=== PATIENT | male | born 1960 | race Caucasian/White ===

== ENCOUNTER 2023-08-02 11:14 | Inpatient (IN) | payer MEDICAID, SELFPAY ==
[2023-08-02] VITALS (8 sets, daily range): BP systolic 111–182; BP diastolic 65–132; PULSE 64–92; RESP 16–18; TEMP 36.5–37; O2SAT 95–98; BMI 26.6
--- NOTE | 2023-08-02 11:37 | ED.C_ITS ---
HPI - Psych General: Chief Complaint: Psychiatric Symptoms Stated Complaint: MHE Time Seen by Provider: 08/02/23 11:26 Source: patient Mode of arrival: ambulatory Limitations: no limitations History of Present Illness: 63-year-old male who states he has been having increasing depression he states that its been severe lately. He denies suicidal or homicidal ideations he is not on any meds. States that he is so depressed that he feels like he needs inpatient admission to get some help. Denies any worsening improving factors Associated symptoms: Reports depression; Deny suicidal ideation Review of Systems Const: Denies: fever(s), chills, body aches or change in appetite Eyes: Denies: blurry vision or eye discomfort ENMT: Denies: throat pain or dental pain Card: Denies: chest pain Resp: Denies: dyspnea GI: Denies: abdominal pain, nausea, vomiting or diarrhea : Denies: dysuria Musc: Denies: neck pain or back pain Skin/Breast: Denies: rash Neuro: Denies: headache(s) Psych: Reports: depression; Denies: suicidal ideation Physical Exam Const: COMMON NORMALS: no acute distress, patient oriented x3 and healthy appearing HENMT: COMMON NORMALS: normocephalic and atraumatic HEAD & SCALP: normocephalic and atraumatic Eye: COMMON NORMALS: Equal, round and reactive pupils present and EOMs intact bilaterally PUPIL: Yes Equal, round and reactive pupils present Neck/C-Spine: COMMON NORMALS: full ROM and supple Chest: COMMONS NORMALS: normal inspection of the chest and normal palpation of entire chest wall Resp: COMMON NORMALS: normal respiratory effort, No retractions, No use of accessory muscles and clear to auscultation bilaterally AUSCULTATION: clear to auscultation bilaterally Cardio: COMMON NORMALS: regular rate, regular rhythm and No murmurs present (Cardio) RATE: regular rate RHYTHM: regular rhythm GI: COMMON NORMALS: Normal to inspection, nondistended, normoactive bowel sounds present, Soft to palpation, non-tender and no masses PALPATION: Yes Soft to palpation Extremity: COMMON NORMALS: normal to inspection and full ROM Neuro: COMMON NORMALS: patient oriented x3, moves all extremities and no focal motor deficits Psych: COMMON NORMALS: mental status grossly normal, Normal thought process present and cooperative MOOD & AFFECT: Yes depressed mood THOUGHT PROCESS: Normal thought process present Skin: COMMON NORMALS: no rashes or lesions noted and no wounds GENERAL SKIN EXAM: no rashes or lesions noted Course Vital Signs: Vital signs: Vital Signs Temperature 97.7 F 08/02/23 11:31 Pulse Rate 86 08/02/23 12:23 Respiratory Rate 16 08/02/23 12:23 Blood Pressure 182/132 08/02/23 12:23 Pulse Oximetry 97 08/02/23 12:23 Oxygen Delivery Me thod Room Air 08/02/23 11:47 MDM - Psych Medical Decision Making patient presents with depression he is voluntarily want to be admitted blood work here is normal spoke to psychiatrist will admit at this time. Medical Records I reviewed the patient's medical records. Lab Data I reviewed the patient's lab results. 08/02/23 11:13 08/02/23 11:13 Laboratory Results WBC Cancelled 08/02/23 11:13 Corrected WBC Cancelled 08/02/23 11:13 RBC Cancelled 08/02/23 11:13 Hgb Cancelled 08/02/23 11:13 Hct Cancelled 08/02/23 11:13 MCV Cancelled 08/02/23 11:13 MCH Cancelled 08/02/23 11:13 MCHC Cancelled 08/02/23 11:13 RDW Cancelled 08/02/23 11:13 Plt Count Cancelled 08/02/23 11:13 MPV Cancelled 08/02/23 11:13 Gran % Cancelled 08/02/23 11:13 Neut % (Auto) Cancelled 08/02/23 11:13 Lymph % (Auto) Cancelled 08/02/23 11:13 [place] % (Auto) Cancelled 08/02/23 11:13 Eos % (Auto) Cancelled 08/02/23 11:13 Baso % (Auto) Cancelled 08/02/23 11:13 Neut # (Auto) Cancelled 08/02/23 11:13 Lymph # (Auto) Cancelled 08/02/23 11:13 [place] # (Auto) Cancelled 08/02/23 11:13 Eos # (Auto) Cancelled 08/02/23 11:13 Baso # (Auto) Cancelled 08/02/23 11:13 Absolute Gran (auto) Cancelled 08/02/23 11:13 Nucleated RBC % (auto) Cancelled 08/02/23 11:13 Nucleated RBCs # Cancelled 08/02/23 11:13 Sodium 138 mmol/L (136-145) 08/02/23 11:13 Potassium 4.2 mmol/L (3.5-5.1) 08/02/23 11:13 Chloride 102 mmol/L (98-107) 08/02/23 11:13 Carbon Dioxide 22 mmol/L (22-29) 08/02/23 11:13 Anion Gap 18.2 (5-19) 08/02/23 11:13 BUN 13 mg/dL (8-23) 08/02/23 11:13 Creatinine 0.8 mg/dL (0.7-1.2) 08/02/23 11:13 GFR Calculation 98.3 mL/min (90-130) 08/02/23 11:13 Glucose 133 mg/dL (65-115) H 08/02/23 11:13 Calculated Osmolality 288 mOsm/kg (285-295) 08/02/23 11:13 Calcium 9.9 mg/dL (8.5-10.5) 08/02/23 11:13 Total Bilirubin 0.7 mg/dL (0.15-1.2) 08/02/23 11:13 AST 17 U/L (0-40) 08/02/23 11:13 ALT 14 U/L (0-41) 08/02/23 11:13 Alkaline Phosphatase 68 U/L (40-130) 08/02/23 11:13 Total Protein 7.8 g/dL (6.6-8.7) 08/02/23 11:13 Albumin 5.1 g/dL (3.5-5.2) 08/02/23 11:13 Globulin 2.7 g/dL (1.3-4.6) 08/02/23 11:13 Salicylates 2.6 mg/dL (3-10) L 08/02/23 11:13 Urine Opiates Screen Negative ng/mL (Negative) 08/02/23 11:32 Acetaminophen < 5.0 ug/mL (10-30) L 08/02/23 11:13 Ur Barbiturates Screen Negative ng/mL (Negative) 08/02/23 11:32 Ur Phencyclidine Scrn Negative ng/mL (Negative) 08/02/23 11:32 Ur Amphetamines Screen Negative ng/mL (Negative) 08/02/23 11:32 U Benzodiazepines Scrn Negative ng/mL (Negative) 08/02/23 11:32 Urine Cocaine Screen Negative ng/mL (Negative) 08/02/23 11:32 U Marijuana (THC) Screen Positive ng/mL (Negative) H 08/02/23 11:32 Ethyl Alcohol < 10 mg/dL (0-10) 08/02/23 11:13 No radiology studies performed this visit Discharge Plan Discharge Patient Disposition: Admitted As Inpatient Admit Provider: Alexis Quinn Clinical Impression: Depression Condition: Stable Coding Level of Care Code ED Veterans' Coordinator for Marge Brown
[2023-08-02] MEDS: metoprolol tartrate 50 mg Tablet PO (11:56)
[2023-08-02 12:04] LABS: Alanine Aminotransferase 14 U/L (0-41); Albumin Level 5.1 g/dL (3.5-5.2); Alkaline Phosphatase 68 U/L (40-130); Blood Urea Nitrogen 13 mg/dL (8-23); Calcium 9.9 mg/dL (8.5-10.5); Carbon Dioxide 22 mmol/L (22-29); Chloride 102 mmol/L (98-107); Globulin 2.7 g/dL (1.3-4.6); Glomerular Filtration Rate 98.3 mL/min (90-130); Glucose 133 mg/dL (65-115); Osmolality Calculated 288 mOsm/kg (285-295); Salicylate 2.6 mg/dL (3-10); Sodium 138 mmol/L (136-145); Total Bilirubin 0.7 mg/dL (0.15-1.2); Total Protein 7.8 g/dL (6.6-8.7)
[2023-08-02 12:05] LABS: Amphetamines Screen Urine Negative (Negative); Barbiturates Screen Urine Negative (Negative); Benzodiazepines Screen Urine Negative (Negative); Cocaine Screen Urine Negative (Negative); Opiate Screen Urine Negative (Negative); PCP Screen Urine Negative (Negative); THC Screen Urine Positive (Negative)
[2023-08-02 12:10] LABS: Acetaminophen < 5.0 ug/mL (10-30); Alcohol Level < 10 mg/dL (0-10)
[2023-08-02 12:11] LABS: Anion Gap 18.2 (5-19); Potassium 4.2 mmol/L (3.5-5.1)
[2023-08-02 12:12] LABS: Aspartate Amino Transferase 17 U/L (0-40)
--- NOTE | 2023-08-02 12:25 | ECG_ITS ---
[facility] Test Date: 2023-08-02 Pat Name: Thad Macedo Department: Room: 155 Gender: Male Manager Program Management: : 1960 Requested By: Hugo Walton Order Number: [id number] MD: Harry Paulino M.D. Measurements Intervals [place] Rate: 79 P: 47 [place]: 157 QRS: 22 QRSD: 98 T: 37 QT: 366 QTc: 421 Interpretive Statements SINUS RHYTHM INCOMPLETE RIGHT BUNDLE BRANCH BLOCK [90+ ms QRS DURATION, TERMINAL R IN V1/V2, 40+ ms S IN I/aVL/V4/V5/V6] No previous ECG available for comparison Electronically Signed On 08-02-2023 19:07:43 CDT by Harry Paulino M.D. [email or web address] choice [facility] center of smith countyAnametrixblanchard valley [facility].[employer]/store/OM/[id number]
[2023-08-02] MEDS: cloNIDine 0.1 mg Tablet 0.2 MG PO (12:54)
[2023-08-02 13:01] LABS: Basophils # 0.1 10^3/uL (0.0-0.1); Basophils % 0.6 %; Eosinophils # 0.1 10^3/uL (0.0-0.8); Eosinophils % 0.9 %; Hematocrit 51.8 % (37-53); Lymphocytes # 2.7 10^3/uL (0.8-4.8); Lymphocytes % 25.3 %; Mean Corpuscular HGB Conc 33.4 g/dL (30-55); Mean Corpuscular Hemoglobin 29.5 pg (27-33); Mean Corpuscular Volume 88.2 fl (82-101); Mean Platelet Volume 10.6 fL (7.4-10.4); Monocytes # 0.9 10^3/uL (0.2-0.9); Monocytes % 8.3 %; Neutrophils # 6.82 10^3/uL (1.8-7.7); Neutrophils % 64.7 %; Nucleated Red Blood Cells % 0 %; Platelet Count 375 10^3/cmm (157-399); Red Blood Count 5.87 10^6/uL (3.85-5.65); Red Cell Distribution Width 12.9 % (12.1-15.1); White Blood Count 10.54 10^3/uL (3.29-11.43)
[2023-08-02] MEDS: ibuprofen 600 mg Tablet PO (14:05)
--- NOTE | 2023-08-02 14:25 | PC.NURSE ---
Patient states his depression has worsened lately and he has found himself coming home from work and crying nonstop every day. He says he found a neighbor a few days ago that had become a friend of his. Patient also says he had a sister that around [place] and an older brother that passed shortly after. Then he says another one of his brothers got a flesh eating virus, but did eventually get well, although the process did cause him a great amount of worry and stress. He denies hi and avh as well as si and states, I want to live. He denies any medical issues or any home medications. Patient only endorses occasional marijuana use.
[2023-08-03] MEDS: OLANZapine 5 mg ODT PO (04:44)
[2023-08-03 05:17] LABS: Influenza A by IFA Negative (Negative); Influenza B by IFA Negative (Negative)
[2023-08-03 06:20] VITALS: BP 135/72; PULSE 71; RESP 18; TEMP 37.2; O2SAT 96
--- NOTE | 2023-08-03 06:20 | PC.NURSE ---
Patient came to the nurses station and stated that he did not feel right. This tech asked what the symptoms were and he is just kept stating that he did not know but that he did not feel right. Patient was very emotional and continuously apologetic. Patient then stated that his stomach was upset and that he was having body aches, as well as congestion. Patients temperature at the time was 98.2. Charge nurse decided to test patient for Influenza.
[2023-08-03 12:14] LABS: SARS Covid-2 Antigen Negative (Negative)
--- NOTE | 2023-08-03 12:14 | P.NPUHP_ITS ---
Providers/Chief Complaint Admitting Physician: Alexis Quinn MD Chief Complaint: MHE HPI [facility] History of Present Illness Thad Macedo is a 63 year old single male who reports that he has been feeling depressed for the past 6 months. The patient had reported that he had felt that he has been feeling that God has been putting me in hell . The patient endorses that he has had a period of multiple depressive episodes throughout his lifetime but states that this current episode has been lingering for the past several months. He reports that the trigger to his depression was finding out that his brother who he is close with had a serious infection from a flesh eating bacteria and had nearly . He reports that he struggles with chronic worry with complaints of difficulties falling asleep and staying asleep with muscle tension and difficulties with concentrating. He reports being described as a chronic worrier. He reports being unable to control his worry. He still reports feelings of impending doom. He did not endorse any panic symptoms. He does report that he has been struggling with depressed mood with diminished appetite and anhedonia with low energy. He reports that he feels chronically tired and does not feel rested when awakening. He has endorsed passive suicidal thoughts with no active plan. He does report that he has been in significant physical pain and reports feeling physically unwell. He reports increased crying spells and increased feelings of hopelessness. He does not endorse any history of fern. He denies any history of substance abuse. Patient had endorsed feeling more frustrated recently and states that his support including his brother had been suggesting that the patient needed to get counseling and help as they had noticed that he had been increasingly depressed and lacking desire to take care of himself. The patient had reported that he had significant medical injuries including having a generator dropped on the back of his neck several years ago that had limited his ability to work without being in significant pain. Inpatient psychiatric history: 1 previous admission at [facility] for homicidal ideation, Outpatient psychiatric history: None reported Medical history: History of herniated disks and sciatica Surgical history: Reports surgery in his neck including a discectomy Allergies: No known drug allergies Current medications: None Drug and alcohol history: Occasional marijuana use described. Family psychiatric history: None reported Social history: The patient was raised in [place] by his biological parents. There was no history of developmental delays. He denied any past history of sexual physical or emotional abuse. He states his mother had when he was 7 years old and he stayed with his biological father who remarried. He reports that he has 3 siblings 2 of which have in the last year. His older brother 11 months older lives in [place] and is a source of support. He had reported that he had entered into the in 1979 in the [employer] after completing high school and received honorable discharge after 4 years of service. He had reported no trauma related issues and no combat related issues. 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 He reports having no children and states that he had been previously . Meds [facility] Home Medications Medication Instructions Recorded Confirmed Last Taken Type aspirin 81 mg tablet,delayed 81 mg PO DAILY 08/02/23 08/02/23 Unknown History release Allergies Allergy/AdvReac Type Severity Reaction Status Date / Time No Known Allergies Allergy Verified 08/02/23 11:57 [facility] 2 [facility]: Family History (Updated 08/02/23 @ 15:24 by Socorro Montero RN) Brother Alcohol abuse Mental Status Exam MSE Comments: Patient is a casually dressed white male who appeared younger than his stated age with poor hygiene and fair eye contact. He was pleasant on interview. There was no evidence of any abnormal involuntary motor movements tics or tremors appreciated. There was severe psychomotor retardation and psychomotor slowing appreciated. His gait was within normal limits. His mood was described as depressed. His affect was flat and mood congruent. His thought process was linear logical and goal-directed. His thought content showed no evidence of active homicidal ideation with some passive suicidal thoughts with no active plan or intent. There was themes of hopelessness appreciated during the inte rview. He did not appear to be responding to internal stimuli. There was no clear evidence of delusional thinking. He denied any auditory or visual hallucinations. His recent and remote memory were grossly intact. He was alert and oriented to person, place, time,and situation. His insight was limited. His judgment was poor. His impulse control appeared poor. Vitals/I&O/Wt Last Vital Signs Temp 99.0 F 08/03/23 06:20 Pulse 71 08/03/23 06:20 Resp 18 08/03/23 06:20 BP 135/72 08/03/23 06:20 Pulse Ox 96 08/03/23 06:20 O2 Del Method Room Air 08/03/23 06:20 Weight last 48 hrs Weight 81.647 kg Data [facility] 08/02/23 12:54 08/02/23 11:13 A&P Assessment and plan (1) Major depressive disorder, recurrent severe without psychotic features: (2) BELINDA (generalized anxiety disorder): Plan 63-year-old white male with generalized anxiety disorder and major depressive disorder admitted with severe depression with passive suicidal ideation. The p atient would likely benefit from brief psychiatric hospitalization. 1. ?Encourage individual, group and milieu therapy. 2. Begin Zoloft 25mg daily to target BELINDA and MDD. 3. Continue q-15 minute checks for safety.? 4. We will attempt to gather collateral information. Involuntary Hold Information 96 Hour Hold: 96 Hour Involuntary Admission: No Attestations [facility] Medical Necessity Statement*: Plan Inpatient hospitalization is medically necessary and deemed to be the ?clini mallorie appropriate intervention ?at this time.? We will monitor/initiate medications and make changes as indicated.? He will be in the hospital for over 2 midnights.? His lkely length of stay 7-10 days. Coding Level of Care Code Acute Code for Chg Fwd Diagnoses Major depressive disorder, recurrent severe without psychotic features F33.2 BELINDA (generalized anxiety disorder) F41.1
[2023-08-03] MEDS: hyDROXYzine 25 mg Capsule 50 MG PO (12:29)
[2023-08-03] MEDS: aspirin 81 mg EC Tablet PO (12:58)
[2023-08-03] MEDS: sertraline 50 mg Tablet 25 MG PO (12:58)
[2023-08-03 14:00] VITALS: BP 117/80; PULSE 100; RESP 18; TEMP 36.6; O2SAT 96
[2023-08-03] MEDS: flu vacc pf 2023-24 (6 mos+) 60 MCG IM (15:38)
[2023-08-03] MEDS: quetiapine XR (24HR) 50 mg Tablet PO (18:27)
[2023-08-03 22:00] VITALS: BP 118/79; PULSE 88; RESP 17; TEMP 36.8; O2SAT 95
[2023-08-04 06:00] VITALS: BP 125/85; PULSE 97; RESP 18; TEMP 36.8; O2SAT 96
[2023-08-04] MEDS: aspirin 81 mg EC Tablet PO (08:49)
[2023-08-04] MEDS: OLANZapine 5 mg ODT PO (08:49)
[2023-08-04] MEDS: sertraline 50 mg Tablet 25 MG PO (08:49)
--- NOTE | 2023-08-04 08:51 | PC.NURSE ---
Administered ZYprexa 5mg ODT to patient for anxiety. patient states that the vistaril makes him feel bad, like he is brain .
--- NOTE | 2023-08-04 12:55 | W.PM.NPUDCS ---
Diagnoses at Discharge Discharge Diagnosis (1) Major depressive disorder, recurrent severe without psychotic features: Status: Acute (2) BELINDA (generalized anxiety disorder): Status: Acute Reason for Visit Reason for Visit: MHE Brief History: History of Present Illness Thad Macedo is a 63 year old single male who reports that he has been feeling depressed for the past 6 months.? The patient had reported that he had felt that he has been feeling that God has been putting me in hell .? The patient endorses that he has had a period of multiple depressive episodes throughout his lifetime but states that this current episode has been lingering for the past several months.? He reports that the trigger to his depression was finding out that his brother who he is close with had a serious infection from a flesh eating bacteria and had nearly .? He reports that he struggles with chronic worry with complaints of difficulties falling asleep and staying asleep with muscle tension and difficulties with concentrating.? He reports being described as a chronic worrier.? He reports being unable to control his worry.? He still reports feelings of impending doom.? He did not endorse any panic symptoms.? He does report that he has been struggling with depressed mood with diminished appetite and anhedonia with low energy.? He reports that he feels chronically tired and does not feel rested when awakening.? He has endorsed passive suicidal thoughts with no active plan.? He does report that he has been in significant physical pain and reports feeling physically unwell.? He reports increased crying spells and increased feelings of hopelessness.? He does not endorse any history of fern.? He denies any history of substance abuse.? Patient had endorsed feeling more frustrated recently and states that his support including his brother had been suggesting that the patient needed to get counseling and help as they had noticed that he had been increasingly depressed and lacking desire to take care of himself.? The patient had reported that he had significant medical injuries including having a generator dropped on the back of his neck several years ago that had limited his ability to work without being in significant pain. Inpatient psychiatric history: 1 previous admission at [facility] for homicidal ideation, Outpatient psychiatric history: None reported Medical history: History of herniated disks and sciatica Surgical history: Reports surgery in his neck including a discectomy Allergies: No known drug allergies Current medications: None Drug and alcohol history: Occasional marijuana use described. Family psychiatric history: None reported Social history: The patient was raised in [place] by his biological parents.? There was no history of developmental delays.? He denied any past history of sexual physical or emotional abuse.? He states his mother had when he was 7 years old and he stayed with his biological father who remarried.? He reports that he has 3 siblings 2 of which have in the last year.? His older brother 11 months older lives in [place] and is a source of support.? He had reported that he had entered into the in 1979 in the [employer] after completing high school and received honorable discharge after 4 years of service.? He had reported no trauma related issues and no combat related issues.? 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 He reports having no children and states that he had been previously . Hospital Course Hospital Course During the hospitalization, the patient had routine laboratory studies which were within normal limits except for a few outliers.? Additionally, there was a general medical evaluation which was also within normal limits and revealed no new acute processes.? At the time of discharge, lethality was denied and psychosis was resolving.? Mood and anxiety were well managed.? The patient endorsed a plan to avoid all drugs of abuse and follow up with the aftercare recommendations of the treatment team.? The patient was evaluated and deemed to be absent credible lethality and had achieved the maximum benefit from an inpatient hospitalization, and so was discharged. ? Involuntary Hold Information 96 Hour Hold: 96 Hour Involuntary Admission: No Mental Status Exam MSE Comments: Patient is a casually dressed white male who appeared younger than his stated age with fair hygiene and fair eye contact. He was pleasant on interview. There was no evidence of any abnormal involuntary motor movements tics or tremors appreciated. There was mild psychomotor retardation appreciated. His gait was within normal limits. His mood was described as better. His affect was less restricted. His thought process was linear logical and goal-directed. His thought content showed no evidence of active homicidal ideation and no evidence of suicidal ideation. He did not appear to be responding to internal stimuli. There was no clear evidence of delusional thinking. He denied any auditory or visual hallucinations. His recent and remote memory were grossly intact. He was alert and oriented to person, place, time,and situation. His insight was fair. His judgment was improving. His impulse control appeared fair. . Discharge Data Studies Completed and Pending: Laboratory Results WBC 10.54 10^3/uL (3. 29-11.43) 08/02/23 12:54 Corrected WBC Cancelled 08/02/23 11:13 RBC 5.87 10^6/uL (3.8 5-5.65) H 08/02/23 12:54 Hgb 17.30 g/dL (11.27 -16.99) H 08/02/23 12:54 Hct 51.8 % (37-53) 08/02/23 12:54 MCV 88.2 fl (82-101) 08/02/23 12:54 MCH 29.5 pg (27-33) 08/02/23 12:54 MCHC 33.4 g/dL (30-55) 08/02/23 12:54 RDW 12.9 % (12.1-15.1 ) 08/02/23 12:54 Plt Count 375 10^3/cmm (157 -399) 08/02/23 12:54 MPV 10.6 fL (7.4-10.4 ) H 08/02/23 12:54 Gran % Cancelled 08/02/23 11:13 Neut % (Auto) 64.7 % 08/02/23 12:54 Lymph % (Auto) 25.3 % 08/02/23 12:54 [place] % (Auto) 8.3 % 08/02/23 12:54 Eos % (Auto) 0.9 % 08/02/23 12:54 Baso % (Auto) 0.6 % 08/02/23 12:54 Neut # (Auto) 6.82 10^3/uL (1.8 -7.7) 08/02/23 12:54 Lymph # (Auto) 2.7 10^3/uL (0.8- 4.8) 08/02/23 12:54 [place] # (Auto) 0.9 10^3/uL (0.2- 0.9) 08/02/23 12:54 Eos # (Auto) 0.1 10^3/uL (0.0- 0.8) 08/02/23 12:54 Baso # (Auto) 0.1 10^3/uL (0.0- 0.1) 08/02/23 12:54 Absolute Gran (aut o) Cancelled 08/02/23 11:13 Nucleated RBC % (a uto) 0 % 08/02/23 12:54 Nucleated RBCs # 0.0 /100WBC 08/02/23 12:54 Sodium 138 mmol/L (136-1 45) 08/02/23 11:13 Potassium 4.2 mmol/L (3.5-5 .1) 08/02/23 11:13 Chloride 102 mmol/L (98-10 7) 08/02/23 11:13 Carbon Dioxide 22 mmol/L (22-29) 08/02/23 11:13 Anion Gap 18.2 (5-19) 08/02/23 11:13 BUN 13 mg/dL (8-23) 08/02/23 11:13 Creatinine 0.8 mg/dL (0.7-1. 2) 08/02/23 11:13 GFR Calculation 98.3 mL/min (90-1 30) 08/02/23 11:13 Glucose 133 mg/dL (65-115 ) H 08/02/23 11:13 Calculated Osmolal ity 288 mOsm/kg (285- 295) 08/02/23 11:13 Calcium 9.9 mg/dL (8.5-10 .5) 08/02/23 11:13 Total Bilirubin 0.7 mg/dL (0.15-1 .2) 08/02/23 11:13 AST 17 U/L (0-40) 08/02/23 11:13 ALT 14 U/L (0-41) 08/02/23 11:13 Alkaline Phosphata se 68 U/L (40-130) 08/02/23 11:13 Total Protein 7.8 g/dL (6.6-8.7 ) 08/02/23 11:13 Albumin 5.1 g/dL (3.5-5.2 ) 08/02/23 11:13 Globulin 2.7 g/dL (1.3-4.6 ) 08/02/23 11:13 Salicylates 2.6 mg/dL (3-10) L 08/02/23 11:13 Urine Opiates Scre en Negative ng/mL (N egative) 08/02/23 11:32 Acetaminophen < 5.0 ug/mL (10-3 0) L 08/02/23 11:13 Ur Barbiturates Sc reen Negative ng/mL (N egative) 08/02/23 11:32 Ur Phencyclidine S crn Negative ng/mL (N egative) 08/02/23 11:32 Ur Amphetamines Sc reen Negative ng/mL (N egative) 08/02/23 11:32 U Benzodiazepines Scrn Negative ng/mL (N egative) 08/02/23 11:32 Urine Cocaine Scre en Negative ng/mL (N egative) 08/02/23 11:32 U Marijuana (THC) Screen Positive ng/mL (N egative) H 08/02/23 11:32 Ethyl Alcohol < 10 mg/dL (0-10) 08/02/23 11:13 Influenza Type A A g Negative (Negati ve) 08/03/23 04:30 Influenza Type B A g Negative (Negati ve) 08/03/23 04:30 SARS-CoV-2 Ag (Rap id) Negative (Negati ve) 08/03/23 11:40 Vitals: Last Vital Signs Temp 98.2 F 08/04/23 06:00 Pulse 97 08/04/23 06:00 Resp 18 08/04/23 06:00 BP 125/85 08/04/23 06:00 Pulse Ox 96 08/04/23 06:00 O2 Del Method Room Air 08/04/23 06:00 Discharge Plan Discharge Patient Disposition: Home Condition: Stable Prescriptions: New quetiapine 50 mg Tablet Extended Release 24 Hr 100 mg PO 1800 30 Days Qty: 60 1RF sertraline 50 mg Tablet 50 mg PO DAILY 30 Days Qty: 30 1RF Continued Aspir-81 81 mg Tablet,Delayed Release (Dr/Ec) 81 mg PO DAILY Discharge Orders: Discharge Order (Routine); Ordered 08/04/23 Ordered By: Elliott Pritchett Referrals: [facility] [Other] - 08/09/23 10:00 am (Initial appointment) Adam Bhandari MD [Referring] - 08/07/23 1:45 pm Discharge Diet: Usual diet Discharge Activity: Resume usual activity Patient Instructions: Opioid Safety Discharge Attestations [facility] Time Spent in Discharge Care*: less than 30 min Specific Discharge Activities: Specific discharge activities: educating patient, discussing with rehabilitation case coordinator/social workers/dc planners and documenting/other paperwork Coding Level of Care Code Acute Chg FW DC note Diagnoses Major depressive disorder, recurrent severe without psychotic features F33.2 BELINDA (generalized anxiety disorder) F41.1
[2023-08-04 13:08] VITALS: BP 125/85; PULSE 97; RESP 18; TEMP 36.8; O2SAT 96
== END 2023-08-04 14:00 | disposition home or self-care (01) | DRG 885 ==
LOC: ER 11:40 → NP 12:23
PROVIDERS: Admitting Provider Psychiatry & Neurology Psychiatry; Emergency Provider Emergency Medicine; Visit Provider Psychiatry & Neurology Psychiatry
DX: F33.2 Major depressive disorder, recurrent severe without psychotic features (principal); R45.851 Suicidal ideations; F41.1 Generalized anxiety disorder
CPT/HCPCS: 36415; 80053; 80306; 80307; 85025; 87426; 87804; 90471; 90686; 93005; 97150; 97165; 99285

== ENCOUNTER 2023-08-09 17:08 | Observation (INO) | payer MEDICAID, SELFPAY ==
[2023-08-09] VITALS (8 sets, daily range): BP systolic 164–202; BP diastolic 85–137; PULSE 71–85; RESP 16–18; TEMP 36.7–37.1; O2SAT 92–97; BMI 30.7
--- NOTE | 2023-08-09 17:15 | ECG_ITS ---
[facility] Test Date: 2023-08-09 Pat Name: Thad Macedo Department: Room: Gender: Male Patient Scheduler: : 1960 Requested By: Conner Mars Order Number: [id number] MD: Harry Paulino M.D. Measurements Intervals [place] Rate: 75 P: 84 WA: 158 QRS: 45 QRSD: 93 T: 50 QT: 384 QTc: 429 Interpretive Statements SINUS RHYTHM POSSIBLE LEFT ATRIAL ENLARGEMENT [-0.1mV P-WAVE IN V1/V2] INCOMPLETE RIGHT BUNDLE BRANCH BLOCK [90+ ms QRS DURATION, TERMINAL R IN V1/V2, 40+ ms S IN I/aVL/V4/V5/V6] SEPTAL MYOCARDIAL INFARCTION , OF INDETERMINATE AGE [40+ ms Q WAVE IN V1/V2] Compared to ECG 08/02/2023 12:30:50 Myocardial infarct finding now present Electronically Signed On 08-10-2023 6:24:29 CDT by Harry Paulino M.D. [id number]
--- NOTE | 2023-08-09 17:26 | XRR_ITS ---
PROCEDURE INFORMATION: Exam: XR Chest Exam date and time: 08/09/2023 5:31 PM Age: 63 years old Clinical indication: Pain; Chest pressure; Additional info: Cxp TECHNIQUE: Imaging protocol: Radiologic exam of the chest. Views: 1 view. COMPARISON: No relevant prior studies available. FINDINGS: Lungs: Unremarkable. No consolidation. Pleural spaces: Unremarkable. No pleural effusion. No pneumothorax. Heart/Mediastinum: Unremarkable. No cardiomegaly. Bones/joints: Deformity mid shaft right clavicle secondary to old healed fracture. No acute abnormalities. XR/XR chest 1V portable [id number] IMPRESSION: Negative chest exam.
--- NOTE | 2023-08-09 17:26 | ED_ITS ---
HPI - Chest Pain General: Chief Complaint: Chest Pain Stated Complaint: Burning Chest, Syncope Time Seen by Provider: 08/09/23 17:26 History of Present Illness: 63-year-old male presents to the emergency department stating that while he was walking he felt like he was getting dizzy and faint. He states he started having some vague 4 out of 10 chest burning sensation to the middle of his chest at that time. He states that walking seems to make it worse nothing seem to make it better. He states that he felt like he was slightly short of breath at the time of his chest discomfort but it subsided upon coming to the emergency department. He states he recently obtained a primary care provider at [facility] in [place]. He states he has not had a history of cardiac difficulties but over the previous 1 month has had intermittent chest discomfort that he did not have evaluated. He states today that his initial chest discomfort had subsided while he was in the waiting room of the emergency department but it has returned and currently is a 3 out of 10. Associated symptoms: Reports dyspnea Review of Systems General: Reports: 10 or more systems reviewed and unremarkable except in HPI and below Card: Reports: chest pain (Chest burning) Resp: Reports: dyspnea Neuro: Reports: dizziness PFSH ED PFSH: Medical History (Updated 08/11/23 @ 20:24 by Marcelo Davis DO) Anxiety Depression Hypertension Psychiatric care Family History (Updated 08/02/23 @ 15:24 by Socorro Montero RN) Brother Alcohol abuse Physical Exam Const: COMMON NORMALS: no acute distress, patient oriented x3 and alert HENMT: COMMON NORMALS: normocephalic, atraumatic and moist oral mucous membranes HEAD & SCALP: normocephalic and atraumatic Eye: COMMON NORMALS: Equal, round and reactive pupils present and EOMs intact bilaterally PUPIL: Yes Equal, round and reactive pupils present Neck/C-Spine: COMMON NORMALS: full ROM, no lymphadenopathy, supple and no meningeal signs Chest: COMMONS NORMALS: normal inspection of the chest and normal palpation of entire chest wall Resp: COMMON NORMALS: normal respiratory effort, No retractions and clear to auscultation bilaterally AUSCULTATION: clear to auscultation bilaterally Cardio: COMMON NORMALS: regular rate, regular rhythm, S1 normal heart sound present, S2 normal heart sound present and Peripheral pulses 2+ throughout RATE: regular rate RHYTHM: regular rhythm HEART SOUNDS: S1 normal heart sound present and S2 normal heart sound present PERIPHERAL PULSES: Peripheral pulses 2+ throughout GI: COMMON NORMALS: Normal to inspection, nondistended, normoactive bowel sounds present, Soft to palpation and non-tender PALPATION: Yes Soft to palpation : COMMON NORMALS: Yes no CVA tenderness BLADDER/KIDNEY EXAM: Yes no CVA tenderness Back/Pelvis: COMMON NORMALS: no CVA tenderness and thoracic and lumbar spine normal to inspection Extremity: COMMON NORMALS: normal to inspection, full ROM and capillary refill normal Neuro: COMMON NORMALS: patient oriented x3, CN's II-XII intact bilaterally and no sensory deficits noted SENSORIUM/ORIENTATION: Yes alert MENINGEAL SIGNS: Yes no meningeal signs Psych: COMMON NORMALS: mental status grossly normal, Normal thought process present and cooperative THOUGHT PROCESS: Normal thought process present Skin: COMMON NORMALS: no rashes or lesions noted GENERAL SKIN EXAM: no rashes or lesions noted Course ED course: I requested for the hospitalist to be consulted for possible admission of the patient for intermittent chest pain and near syncope. Vital Signs: Vital signs: Vital Signs Temperature 98.5 F 08/10/23 13:59 Pulse Rate 60 08/10/23 13:59 Respiratory Rate 21 H 08/10/23 13:59 Blood Pressure 118/69 08/10/23 13:59 Pulse Oximetry 94 08/10/23 13:59 Oxygen Delivery Me thod Room Air 08/10/23 11:06 MDM - Chest Pain Medical Decision Making Physical exam completed and documented, I will obtain CBC CMP cardiac enzyme as well as a twelve-lead EKG and chest x-ray for evaluation. Medical Records I reviewed the patient's medical records. Lab Data I reviewed the patient's lab results. 08/10/23 03:35 08/10/23 03:35 Radiology Impressions Chest X-Ray 08/09/23 17:26 IMPRESSION: Negative chest exam. Head CT 08/09/23 21:24 IMPRESSION: No acute intracranial findings. Laboratory Results WBC 10.03 10^3/uL (3.29-11.43) 08/09/23 17:29 RBC 5.32 10^6/uL (3.85-5.65) 08/09/23 17:29 Hgb 15.80 g/dL (11.27-16.99) 08/09/23 17: Hct 47.4 % (37-53) 08/09/23 17: MCV 89.1 fl (82-101) 08/09/23 17: MCH 29.7 pg (27-33) 08/09/23 17: MCHC 33.3 g/dL (30-55) 08/09/23 17: RDW 12.9 % (12.1-15.1) 08/09/23: Plt Count 296 10^3/cmm (157-399) 08/09/23 17: MPV 11.5 fL (7.4-10.4) H 08/09/23: Neut % (Auto) 61.6 % 08/09/23 17: Lymph % (Auto) 27.9 % 08/09/23 17: Robertson % (Auto) 9.3 % 08/09/23: Eos % (Auto) 0.4 % 08/09/23: Baso % (Auto) 0.5 % 08/09/23: Neut # (Auto) 6.18 10^3/uL (1.8-7.7) 08/09/23 17: Lymph # (Auto) 2.8 10^3/uL (0.8-4.8) 08/09/23 17: Robertson # (Auto) 0.9 10^3/uL (0.2-0.9) 08/09/23 17: Eos # (Auto) 0.0 10^3/uL (0.0-0.8) 08/09/23: Baso # (Auto) 0.1 10^3/uL (0.0-0.1) 08/09/23 17: Nucleated RBC % (auto) 0 % 08/09/23: Nucleated RBCs # 0.0 /100WBC 08/09/23 17: Sodium 140 mmol/L (136-145) 08/09/23 17: Potassium 3.9 mmol/L (3.5-5.1) 08/09/23 17: Chloride 101 mmol/L (98-107) 08/09/23 17: Carbon Dioxide 26 mmol/L (22-29) 08/09/23 17:29 Anion Gap 16.9 (5-19) 08/09/23 17:29 BUN 13 mg/dL (8-23) 08/09/23 17:29 Creatinine 0.7 mg/dL (0.7-1.2) 08/09/23 17:29 GFR Calculation 114.6 mL/min (90-130) 08/09/23 17:29 Glucose 101 mg/dL (65-115) 08/09/23 17: POC Glucose 112 mg/dL (70-110) H 08/09/23 18:47 Calculated Osmolality 290 mOsm/kg (285-295) 08/09/23 17: Calcium 9.2 mg/dL (8.5-10.5) 08/09/23 17: Total Bilirubin 0.4 mg/dL (0.15-1.2) 08/09/23 17: AST 20 U/L (0-40) 08/09/23 17:29 ALT 17 U/L (0-41) 08/09/23 17: Alkaline Phosphatase 66 U/L (40-130) 08/09/23 17:29 Troponin T Baseline 12 ng/L (0-15) 08/09/23 17:29 Troponin T 120 Minute 15.17 ng/L (0-15) H 08/09/23 19:20 Delta Troponin T 3.17 ABS# (0-10) 08/09/23 19:20 NT-Pro-B Natriuret Pep 41 pg/mL (0-125) 08/09/23 19:20 Total Protein 7.1 g/dL (6.6-8.7) 08/09/23 17: Albumin 4.8 g/dL (3.5-5.2) 08/09/23 17: Globulin 2.3 g/dL (1.3-4.6) 08/09/23 17:29 Urine Color Yellow (Yellow) 08/09/23 18:48 Urine Appearance Clear (CLEAR) 08/09/23 18:48 Urine pH 5 (5-7) 08/09/23 18:48 Ur Specific [place] 1.020 (1.005-1.030) 08/09/23 18:48 Urine Protein Neg (Negative) 08/09/23 18:48 Urine Glucose (UA) Norm (Normal) 08/09/23 18:48 Urine Ketones 1+ (Negative) H 08/09/23 18:48 Urine Blood Neg (Negative) 08/09/23 18:48 Urine Nitrate Negative (Negative) 08/09/23 18:48 Urine Bilirubin Neg (Negative) 08/09/23 18:48 Urine Urobilinogen Norm mg/dL (Negative) 08/09/23 18:48 Ur Leukocyte Esterase Negative (Negative) 08/09/23 18:48 Urine Opiates Screen Negative ng/mL (Negative) 08/09/23 18:48 Ur Barbiturates Screen Negative ng/mL (Negative) 08/09/23 18:48 Ur Phencyclidine Scrn Negative ng/mL (Negative) 08/09/23 18:48 Ur Amphetamines Screen Negative ng/mL (Negative) 08/09/23 18:48 U Benzodiazepines Scrn Negative ng/mL (Negative) 08/09/23 18:48 Urine Cocaine Screen Negative ng/mL (Negative) 08/09/23 18:48 U Marijuana (THC) Screen Positive ng/mL (Negative) H 08/09/23 18:48 All radiology interpretation(s) finalized by discharge ED provider radiology interpretation(s): Negative chest exam on plain film radiograph Discharge Plan Discharge Patient Disposition: Admitted As Inpatient Admit Provider: Farzad Watkins Clinical Impression: Chest pain, Near syncope Condition: Stable Discharge Diet: Cardiac Discharge Activity: Resume usual activity Coding Level of Care Code ED Nuclear Process Engineer for Marge Brown
[2023-08-09 17:43] LABS: Basophils # 0.1 10^3/uL (0.0-0.1); Basophils % 0.5 %; Eosinophils % 0.4 %; Hematocrit 47.4 % (37-53); Lymphocytes # 2.8 10^3/uL (0.8-4.8); Lymphocytes % 27.9 %; Mean Corpuscular HGB Conc 33.3 g/dL (30-55); Mean Corpuscular Hemoglobin 29.7 pg (27-33); Mean Corpuscular Volume 89.1 fl (82-101); Mean Platelet Volume 11.5 fL (7.4-10.4); Monocytes # 0.9 10^3/uL (0.2-0.9); Monocytes % 9.3 %; Neutrophils # 6.18 10^3/uL (1.8-7.7); Neutrophils % 61.6 %; Nucleated Red Blood Cells % 0 %; Platelet Count 296 10^3/cmm (157-399); Red Blood Count 5.32 10^6/uL (3.85-5.65); Red Cell Distribution Width 12.9 % (12.1-15.1); White Blood Count 10.03 10^3/uL (3.29-11.43)
[2023-08-09 18:14] LABS: Troponin(5th) Baseline 12 ng/L (0-15)
[2023-08-09 18:25] LABS: Alanine Aminotransferase 17 U/L (0-41); Albumin Level 4.8 g/dL (3.5-5.2); Alkaline Phosphatase 66 U/L (40-130); Blood Urea Nitrogen 13 mg/dL (8-23); Calcium 9.2 mg/dL (8.5-10.5); Carbon Dioxide 26 mmol/L (22-29); Chloride 101 mmol/L (98-107); Globulin 2.3 g/dL (1.3-4.6); Glomerular Filtration Rate 114.6 mL/min (90-130); Glucose 101 mg/dL (65-115); NT Pro B Type Natriuretic Pept 40 pg/mL (0-125); Osmolality Calculated 290 mOsm/kg (285-295); Sodium 140 mmol/L (136-145); Total Bilirubin 0.4 mg/dL (0.15-1.2); Total Protein 7.1 g/dL (6.6-8.7)
[2023-08-09 18:44] LABS: Anion Gap 16.9 (5-19); Aspartate Amino Transferase 20 U/L (0-40); Potassium 3.9 mmol/L (3.5-5.1)
[2023-08-09 18:52] LABS: Add Urine Microscopic? NO; Charge for UA Resulting for Rev
[2023-08-09 18:53] LABS: Glucose Point of Care 112 mg/dL (70-110)
[2023-08-09 19:13] LABS: Amphetamines Screen Urine Negative (Negative); Barbiturates Screen Urine Negative (Negative); Benzodiazepines Screen Urine Negative (Negative); Cocaine Screen Urine Negative (Negative); Opiate Screen Urine Negative (Negative); PCP Screen Urine Negative (Negative); THC Screen Urine Positive (Negative)
[2023-08-09 19:15] LABS: Bilirubin Urine Neg (Negative); Blood Urine Neg (Negative); Glucose Urine UA Norm (Normal); Ketones Urine 1+ (Negative); Leukocyte Esterase Urine Negative (Negative); Nitrate Urine Negative (Negative); Protein Urine Neg (Negative); Urine Appearance Clear (CLEAR); Urine Color Yellow (Yellow); Urobilinogen Urine Norm (Negative); pH Urine 5 (5-7)
[2023-08-09 19:55] LABS: Troponin 5 2HR 15.17 ng/L (0-15)
[2023-08-09 19:58] LABS: Troponin 5 2HR Delta 3.17 ABS# (0-10)
--- NOTE | 2023-08-09 20:05 | ECG_ITS ---
[facility] Test Date: 2023-08-09 Pat Name: Thad Macedo Department: Room: Gender: Male Mill Representative: : 1960 Requested By: Conner Mars Order Number: [id number] MD: Harry Paulino M.D. Measurements Intervals [place] Rate: 79 P: 44 SC: 157 QRS: 22 QRSD: 98 T: 34 QT: 374 QTc: 430 Interpretive Statements SINUS RHYTHM POSSIBLE LEFT ATRIAL ENLARGEMENT [-0.1mV P-WAVE IN V1/V2] INCOMPLETE RIGHT BUNDLE BRANCH BLOCK [90+ ms QRS DURATION, TERMINAL R IN V1/V2, 40+ ms S IN I/aVL/V4/V5/V6] SEPTAL MYOCARDIAL INFARCTION , PROBABLY OLD [40+ ms Q WAVE IN V1/V2] Compared to ECG 08/09/2023 17:15:44 No significant changes Electronically Signed On 08-10-2023 6:25:00 CDT by Harry Paulino M.D. [id number]
[2023-08-09] MEDS: aspirin 81 mg Chew Tablet 324 MG PO (20:38)
--- NOTE | 2023-08-09 21:24 | ECG_ITS ---
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 Interpretive Statements NAME OF STUDY: LEXISCAN SESTAMIBI STRESS TEST INDICATION: [UNSTABLE ANGINA, ] Procedure: At the baseline, the blood pressure was 152/87 mmHg with a heart rate of 63 bpm. The electrocardiogram showed normal sinus rhythm, normal axis with normal ST and T's. The Lexiscan was infused over a period of 20 seconds. A total of 0.4 mg of Lexiscan was infused. The stress phase was continued for a total of 5 minutes. Heart rate was at the end of stress phase was 82 bpm and a blood pressure of 139/76 mmHg. The EKG at the peak infusion revealed normal sinus rhythm with no significant ST-T wave changes. Sestamibi was injected 20 seconds after the Lexiscan infusion. Blood pressure at the end of recovery phase was 144/75 mmHg with a heart rate of 80 bpm. Conclusion: 1. Normal EKG response to Lexiscan infusion 2. No Lexiscan induced chest pain or cardiac arrhythmia. 3. Normal blood pressure and heart rate response. 4. Sestamibi/sestamibi perfusion scan pending; see separate report. Electronically Signed On 08-12-2023 20:49:08 CDT by Harry Paulino M.D. [id number]
--- NOTE | 2023-08-09 21:24 | USCV_ITS ---
Thad Macedo Age: 63 Gender: M : 1960 Exam Date: 08/09/2023 21:45 Ordering Phys: Farzad Watkins MD Technologist: EDGAR [place] [facility] [place] Indication: unstable angina, HTN, no history of cardiac intervention per patient. BP: 202 / 137 HR: 76 Rhythm: Sinus Technical Quality: Adequate MEASUREMENTS (Male / Female) Normal Values 2D ECHO LV Diastolic Diameter PLAX 4.0 cm 4.2 - 5.9 / 3.9 - 5.3 cm LV Systolic Diameter PLAX 2.7 cm IVS Diastolic Thickness 1.3 cm 0.6 - 1.0 / 0.6 - 0.9 cm IVS Systolic Thickness 1.4 cm LVPW Diastolic Thickness 1.4 cm 0.6 - 1.0 / 0.6 - 0.9 cm LVPW Systolic Thickness 1.8 cm LVOT Diameter 1.8 cm LV Ejection Fraction 2D Teich 61.7 % LV Ejection Fraction MOD 2C 63.9 % LV Ejection Fraction 2C AL 64.1 % LA Diameter 3.8 cm LA Width 3.7 cm LA Height 4.7 cm RA Width 2.9 cm RA Height 4.0 cm Aorta at Sinotubular Diameter 3.4 cm IVC Diameter 1.3 cm M-MODE Aortic Annulus Diameter 2.9 cm LA Ao Ratio MM 1.3 MV E Point Septal Separation 0.0 cm DOPPLER AV Peak Velocity 152.0 cm/s LVOT Peak Velocity 127.0 cm/s AV Area Cont Eq vti 2.5 cm squared AV Area Cont Eq pk 2.2 cm squared MV Peak Velocity 101.0 cm/s MV Area PHT 3.7 cm squared Mitral E to A Ratio 1.3 MV E' Velocity 56.0 cm/s Mitral E to MV E' Ratio 7.9 Mitral E to LV E' Lateral Ratio 6.4 Mitral E to LV E' Septal Ratio 10.2 TR Peak Velocity 236.3 cm/s TR Peak Gradient 22.3 mmHg TV Peak E Velocity 42.0 cm/s Right Atrial Pressure 5.0 mmHg Pulmonary Artery Systolic Pressu 27.3 mmHg PV Peak Velocity 131.0 cm/s RV Acceleration Time 0.1 s RV Ejection Time 0.4 s RV AcT/ET 0.3 FINDINGS Left Ventricle Left ventricle is normal in size. LV systolic function is normal with EF of 60 to 65%. No regional wall motion abnormalities are seen. Right Ventricle Normal in size and Right Atrium Normal in size Left Atrium Normal in size Mitral Valve Possible mitral valve prolapse. Mild mitral regurgitation. Aortic Valve Structurally normal aortic valve. No significant stenosis or regurgitation. Tricuspid Valve Trace tricuspid regurgitation. Insufficient TR jet to calculate RVSP Pulmonic Valve Not well-visualized Pericardium Normal Aorta Normal in size IVC Appears to be normal CONCLUSIONS LV systolic function is normal with EF of 60 to 65%. Possible mitral valve prolapse is seen. Mild mitral regurgitation. Trace tricuspid regurgitation. No comparison studies are available Harry Paulino MD (Electronically Signed) Final Date: 10 August 2023 08:12 S
--- NOTE | 2023-08-09 21:24 | CTR_ITS ---
PROCEDURE INFORMATION: Exam: CT Head Without Contrast Exam date and time: 08/09/2023 9:36 PM Age: 63 years old Clinical indication: Syncope and collapse TECHNIQUE: Imaging protocol: Computed tomography of the head without contrast. Radiation optimization: All CT scans at this facility use at least one of these dose optimization techniques: automated exposure control; mA and/or kV adjustment per patient size (includes targeted exams where dose is matched to clinical indication); or iterative reconstruction. REPORTING DATA: Count of CT and Cardiac NM exams in prior 12 months: This patient has received 0 known CTs and 0 known cardiac nuclear medicine studies in the 12 months prior to the current study. COMPARISON: No relevant prior studies available. RADIATION DOSE METRICS: Total DLP (mGy-cm): 1149 FINDINGS: Brain: Severe calcified intracranial atherosclerotic vessel disease. Cerebral ventricles: No ventriculomegaly. Paranasal sinuses: Visualized sinuses are unremarkable. No fluid levels. Mastoid air cells: Visualized mastoid air cells are well aerated. Bones/joints: Unremarkable. No acute fracture. Soft tissues: Unremarkable. CT/CT head wo con* [id number] IMPRESSION: No acute intracranial findings.
[2023-08-09] MEDS: amlodipine 10 mg Tablet PO (21:45)
[2023-08-09] MEDS: lisinopril 10 mg Tablet PO (21:45)
[2023-08-09] MEDS: atorvastatin 40 mg Tablet 80 MG PO (21:45)
[2023-08-09] MEDS: ALPRAZolam 0.5 mg Tablet PO (21:47)
[2023-08-09 21:58] LABS: NT Pro B Type Natriuretic Pept 41 pg/mL (0-125)
[2023-08-09 22:25] LABS: Glucose Point of Care 107 mg/dL (70-110)
[2023-08-09] MEDS: pantoprazole 40 mg SDV IVP (22:39)
[2023-08-09] MEDS: heparin 5,000 unit/mL INJ 1 mL 5000 UNIT SUBCUT (22:40)
[2023-08-09 23:41] LABS: Troponin 5 6HR 10.19 ng/L (0-15); Troponin 5 6HR Delta -1.81 ng/L (0-12)
[2023-08-09 23:49] LABS: Iron 80 ug/dL (59-158); Percent Saturation 32.1 % (20-50); Thyroid Stimulating Hormone 0.85 uIU/mL (0.27-4.20); Total Iron Binding Capacity 249 mcg/dl; Unsaturated Iron Binding 169 ug/dL (112-347); Vitamin B12 390 pg/mL (232-1245)
[2023-08-10] VITALS (7 sets, daily range): BP systolic 118–144; BP diastolic 69–92; PULSE 60–83; RESP 15–22; TEMP 36.6–37.3; O2SAT 94–97
--- NOTE | 2023-08-10 00:15 | P.HP_ITS ---
Providers/Chief Complaint Admitting Physician: Farzad Watkins MD Chief Complaint: Burning Chest, Syncope History of Present Illness Thad Macedo is a 63 year old male with a history of depression, recent NPU stay for a day on AUGUST 03 for the same, states that he was feeling better after starting Zoloft. He presents to the emergency room today due to complaints of chest pain. States that over the past 2 weeks he has had episodes of chest discomfort. States that the pain is located in the center of the chest, feels like a burning sensation often associated with a hot flash and nausea. States that he feels dizzy and thinks he may pass out because of this sensation. He has not noted any association with exertion. No apparent relieving factors. Pain appears to be intermittent. On some days he feels like it is reproducible with palpation of the chest wall. States that he has been very depressed, about 2 weeks ago he felt like he was crying all the time. Most of his anxiety is currently related to recent di agnosis of flesh eating bacteria with his brother. States that his brother presented to an emergency room with sore throat which had been going on for a few days and was eventually found to have some kind of flesh eating bacterial process in the pharynx and needed to be life flighted and had extensive ENT surgery. He does not know the specifics. Thinks that her brother symptoms started after esophageal dilatation procedure. Patient currently has no signs of cellulitis. He keeps touching his neck where there is noted to be some erythema from the constant pressure. This completely disappears when the patient is talking and lets go of his skin. His main worry right now is around the fact that he thinks his brother's condition may be contagious. He thinks he has a sore throat and his voice appears to be more raspy than his baseline. He is noted to be hypertensive with blood pressure 202 upon 137 upon arrival at the ER. He states that he has been having high blood pressure the past 2 weeks. His primary care physician has recently added lisinopril to his regimen. His symptoms have been pre dating prior to addition of lisinopril. ROS + sore throat, chest pain Review of Systems General: Reports: 10 or more systems reviewed and unremarkable except in HPI and below Const: Denies: fever(s), chills or body aches Eyes: Denies: change in vision, blurry vision or photophobia ENMT: Reports: hoarseness; Denies: throat pain, enlarged tonsils, odynophagia or nasal congestion Card: Denies: chest pain, palpitations, irregular heart rhythm, edema, swelling of feet/ankles, lightheadedness, pre-syncope, dyspnea on exertion or orthopnea Resp: Denies: dyspnea, productive cough, non-productive cough, wheezing, stridor, pain on inspiration, change in phlegm color, hemoptysis or chest congestion GI: Denies: abdominal pain, nausea, vomiting, hematemesis, coffee ground emesis, dysphagia, heartburn, diarrhea, constipation, GI cramping, change in stool character, hematochezia or melena : Denies: flank pain, dysuria, urinary frequency, urinary urgency, urinary hesitancy or hematuria Musc: Denies: neck pain, back pain, extremity pain, joint swelling, joint war mth or deformity Neuro: Denies: headache(s), numbness in extremities, weakness in extremities, sensory changes, difficulty walking, frequent falls, dizziness, vertigo, be havioral changes, Slurred speech present or seizure-like activity Psych: Denies: anxiety, depression, suicidal ideation or homicidal ideation Endo: Denies: polyuria, polydipsia, tired all the time, cold intolerance or hot flashes Murtaza/Lymph: Denies: easy bruising or easy bleeding Medications/Allergies Home Medications Medication Instructions Recorded Confirmed Last Taken Type aspirin 81 mg tablet,delayed 81 mg PO DAILY 08/02/23 08/09/23 08/09/23 History release quetiapine 50 mg tablet,extended 100 mg PO 1800 30 days #60 tabs 08/04/23 08/09/23 08/09/23 Rx release 24 hr sertraline 50 mg tablet 50 mg PO DAILY 30 days #30 tabs 08/04/23 08/09/23 08/09/23 Rx Allergies Allergy/AdvReac Type Severity Reaction Status Date / Time No Known Allergies Allergy Verified 08/09/23 17:22 PFSH Acute PFSH: Medical History (Updated 08/10/23 @ 04:35 by Radha Bailon MD) Anxiety Depression Hypertension Family History (Updated 08/02/23 @ 15:24 by Socorro Montero RN) Brother Alcohol abuse Vitals/I&O/Wt Last Vital Signs Temp 98.0 F 08/09/23 23:54 Pulse 71 08/09/23 23:54 Resp 22 H 08/10/23 03:46 BP 164/85 08/09/23 23:54 Pulse Ox 97 08/10/23 03:46 O2 Del Method Room Air 08/09/23 23:54 08/09/23 08/09/23 08/10/23 14:59 22:59 06:59 Intake Total 240 / 240 Balance 240 / 240 Weight last 48 hrs Weight 86.183 kg Physical Exam Narrative: General: No acute distress, AO x3 HEENT: PERRLA, pupils bilaterally equal and reactive, pallors not present Chest: Normal vesicular breath sounds, no added sounds, equal good air entry bilaterally CVS: S1-S2 regular, no murmurs, no tachycardia, no gallops, no rubs Abdomen: Soft, nontender, no organomegaly, bowel sounds present Neuro: No focal deficits, no facial deformity, AO x3, power 5/5 in all limbs Data 08/09/23 17:29 08/09/23 17:29 A&P Assessment and plan (1) Chest pain: 63-year-old male with HPI as above presenting with atypical chest pain associated with symptoms of flushing diaphoresis and dizziness intermittently over the past 2 weeks. No past history of CAD, however has risk factors by way of known hypertension. EKG is showing sinus rhythm today without acute ST-T wave changes Troponin trend 12---> 15---> 10 Cannot exclude possibility of angina at this time. We will proceed with stress test in the morning to evaluate for this possibility. Risk stratification with screening for diabetes mellitus dyslipidemia (2) Hypertensive urgency: Patient elevated to 202/137 upon arrival at the ER. At the time of my assessment his blood pressure is ranging between 1 70-1 80 sy stolic. Hydralazine 10 mg IV every 4 hours for SBP greater than 160 Continue home regimen of amlodipine, lisinopril/metoprolol Will need optimization of antihypertensive regimen prior to discharge. (3) Major depressive disorder, recurrent severe without psychotic features: Recent admission to the neuropsychiatry clinic, states that he felt better with addition of Zoloft however at this present time patient is clearly exhibiting severe anxiety and depression. (4) BELINDA (generalized anxiety disorder): Alternate differential for his current presentation is that of a panic attack. Patient is extremely concerned about his brother's recent diagnosis of necrotizing fasciitis which per his description appears to have involve the mediastinum for which he required extensive head and neck surgery. Since he describes it as necrotizing fasciitis, preceding sore throat, throat swabs showing flesh eating bacteria , I assume he is referring to group A streptococcal invasive infection. Most of his current anxiety is centered around him having been a household contact with his brother and the possibility of him being infected with the same. Keeps talking about a sore throat and a raspy voice, keeps touching his throat and picking at the skin at the base of his throat which is showing some erythema from the picking. Once he lets go his current does return to its normal color. He is states that he has been walking around crying for the past 2 weeks. He is very afraid he is going to from necrotizing fasciitis of the head and neck. We will consult psychiatry in the a.m. for his debilitating anxiety. (5) Streptococcus group A exposure: Group A streptococcal screen to be taken today, per history appears he was a h ousehold contact and has significant debilitating anxiety related to the same. If positive can offer him chemoprophylaxis with cephalexin. Currently does not meet [facility] criteria for a streptococcal sore throat. Check respiratory viral panel as it may be an alternate explanation for his symptoms. He is also endorsing some coryza and postnasal drip over the same timeframe. Attestations Medical Necessity Statement*: Greater than 2 midnight admission is anticipated for above defined care Coding Level of Care Code Acute Code for Chg Fwd Moderate MDM includes number and complexity of problems actively addressed during encounter, amount and/or complexity of data reviewed/ordered and described risk of complication, morbidity or mortality of management as documented Diagnoses Chest pain R07.9 Hypertensive urgency I16.0 Major depressive disorder, recurrent severe without psychotic features F33.2 BELINDA (generalized anxiety disorder) F41.1 Streptococcus group A exposure Z20.818
--- NOTE | 2023-08-10 03:28 | PC.NURSE ---
Patient called for someone to come check on him. He is afraid he is going to begging me not to let him . He said he was in a great sleep and woke up with something pulling him down . He is genuinely trembling with fear and is diaphoretic. He denies chest pain. He refuse the need for any medications at this time. There has been no telemetry events recorded. He did have one very short sleep apnea event about and hour ago. He is upset that I cannot identify the cause. This RN stayed with patient for ~15 to 20min in an attempt to comfort and reassure him. Informed Dr Bailon. Will continue to monitor.
[2023-08-10] MEDS: morphine 4 mg/mL SDV 1 mL 2 MG IVP (03:46)
[2023-08-10 04:27] LABS: Basophils % 0.5 %; Eosinophils # 0.1 10^3/uL (0.0-0.8); Hematocrit 47.6 % (37-53); Lymphocytes # 3.5 10^3/uL (0.8-4.8); Lymphocytes % 39.9 %; Mean Corpuscular HGB Conc 32.6 g/dL (30-55); Mean Corpuscular Hemoglobin 29.2 pg (27-33); Mean Corpuscular Volume 89.8 fl (82-101); Mean Platelet Volume 11.5 fL (7.4-10.4); Monocytes # 0.9 10^3/uL (0.2-0.9); Monocytes % 10.3 %; Neutrophils # 4.22 10^3/uL (1.8-7.7); Neutrophils % 48.1 %; Nucleated Red Blood Cells % 0 %; Platelet Count 256 10^3/cmm (157-399); Red Cell Distribution Width 12.9 % (12.1-15.1); White Blood Count 8.77 10^3/uL (3.29-11.43)
[2023-08-10 04:45] LABS: Estmated Average Glucose 114; Hemoglobin A1C 5.6 % (4.0-6.0)
[2023-08-10 04:49] LABS: Alanine Aminotransferase 16 U/L (0-41); Albumin Level 4.3 g/dL (3.5-5.2); Alkaline Phosphatase 57 U/L (40-130); Aspartate Amino Transferase 16 U/L (0-40); Blood Urea Nitrogen 11 mg/dL (8-23); Calcium 8.9 mg/dL (8.5-10.5); Carbon Dioxide 24 mmol/L (22-29); Chloride 102 mmol/L (98-107); Globulin 2.5 g/dL (1.3-4.6); Glomerular Filtration Rate 98.3 mL/min (90-130); Glucose 103 mg/dL (65-115); Magnesium 2.1 mg/dL (1.7-2.3); Osmolality Calculated 284 mOsm/kg (285-295); Phosphorus 2.3 mg/dL (2.5-4.5); Sodium 137 mmol/L (136-145); Total Bilirubin 0.6 mg/dL (0.15-1.2); Total Protein 6.8 g/dL (6.6-8.7)
[2023-08-10 04:56] LABS: Anion Gap 14.6 (5-19); Potassium 3.6 mmol/L (3.5-5.1)
[2023-08-10 05:03] LABS: Rapid Strep A Test Negative (Negative)
[2023-08-10 05:24] LABS: Chol HDL Ratio 6.63 mg/dL (1.0-5.00); Cholesterol 159 mg/dL (0-200); HDL Cholesterol 24 mg/dL (60-100); LDL Cholesterol Calculated 107 mg/dL (50-129); LDL HDL Ratio 4.46 RATIO (0.00-3.22); Triglycerides 142 mg/dL (0-150)
[2023-08-10] MEDS: heparin 5,000 unit/mL INJ 1 mL 5000 UNIT SUBCUT (05:33)
[2023-08-10 06:07] LABS: Adenovirus Not Detected (NOT DETECT); Chlamydia Pneumoniae Not Detected (NOT DETECT); Coronavirus 229E,HKU1,NL63,OC4 Not Detected (NOT DETECT); Human Metapneumovirus Not Detected (NOT DETECT); Human Rhinovirus/Enterovirus Not Detected (NOT DETECT); Influenza A Not Detected (NOT DETECT); Influenza A H1 Not Detected (NOT DETECT); Influenza A H1-2009 Not Detected (NOT DETECT); Influenza A H3 Not Detected (NOT DETECT); Influenza B Not Detected (NOT DETECT); Mycoplasma Pneumoniae Not Detected (NOT DETECT); Parainfluenza Virus Type 1 Not Detected (NOT DETECT); Parainfluenza Virus Type 2 Not Detected (NOT DETECT); Parainfluenza Virus Type 3 Not Detected (NOT DETECT); Parainfluenza Virus Type 4 Not Detected (NOT DETECT); Respiratory Syncytial Virus A Not Detected (NOT DETECT); Respiratory Syncytial Virus B Not Detected (NOT DETECT)
[2023-08-10 06:22] LABS: SARS-COV-2 Detected (NOT DETECT)
[2023-08-10] MEDS: regadenoson 0.4 Mg/5 ml Syringe IVP (07:24)
[2023-08-10] MEDS: sertraline 50 mg Tablet PO (09:31)
[2023-08-10] MEDS: lisinopril 10 mg Tablet PO (09:31)
[2023-08-10] MEDS: aspirin 81 mg EC Tablet PO (09:31)
[2023-08-10] MEDS: amlodipine 10 mg Tablet PO (09:31)
[2023-08-10] MEDS: metoprolol tartrate 25 mg Tablet PO (09:31)
[2023-08-10] MEDS: ALPRAZolam 0.5 mg Tablet PO (09:35)
--- NOTE | 2023-08-10 10:17 | PC.CHAP ---
Pastoral Care Encounter/Spiritual Assessment Type of Contact [] Declined maintenance repairman visit [] Patient/Family/Request visit [] Outpatient visit [] Follow-up visit [] Physician referral [] Code/Alert [] Routine visit [] Staff referral [] Actively dying [] Patient sleeping [] Family support [] [] Out of room [] Palliative care [] [] Receiving care in room [] Pre-surgical visit [] Trauma [] Long length of stay [] ICU visit [x] Other: Isolation Relational/Emotional Strength [] Patient feels connected with others/family/visitors/staff [] Distress [] Loneliness/isolation [] Abandonment Spirituality of Patient [] Person of Michelle [] Attends Spiritism of their Michelle [] Believes in Prayer [] Reads Bible or Jain materials [] There are Spiritual issues to be addressed Forest Engineer Interventions [] Prayer [] Active listening [] Non-anxious presence [] Spiritual/emotional support [] Crisis/trauma care [] Spiritual counseling [] Bereavement support [] Provided bereavement packet [] Provided Bible/devotional materials [] Provided toy/stuffed animal, coloring book to patient or family member [] Provided Communion [] Anointing/[place] [] Salvation [] Completed spiritual assessment [] Other: Impact on Illness or Injury [] Angry [] Fearful [] Anxious [] Often cries [] Exhaustion [] Unable to work [] Unable to attend scientology [] Unable to walk/stand [] Unable to read [] Unable to drive [] Unable to eat/drink [] Unable to sleep [] Unable to be with family [] Patient intubated [] Other: Summary Isolation Time spent with patient 5 mins
[2023-08-10 11:36] LABS: Glucose Point of Care 120 mg/dL (70-110)
--- NOTE | 2023-08-10 13:32 | PM.DCS ---
Discharge Providers Date of Admission: 08/09/23 21:00 Date of Discharge: August 10, 2023 Attending Provider at Admission: Farzad Watkins MD Attending Provider at Discharge: Pedro Hamilton MD Diagnoses at Discharge Discharge Diagnosis (1) Chest pain: Status: Resolved (2) Hypertensive urgency: Status: Resolved (3) Major depressive disorder, recurrent severe without psychotic features: Status: Acute (4) BELINDA (generalized anxiety disorder): Status: Acute (5) Streptococcus group A exposure: Status: Resolved Reason for Visit Reason for Visit: Burning Chest, Syncope Hospital Course Hospital Course This is a 63-year-old male with a past medical history of anxiety, major depressive disorder, who presents to [facility] due to chest pain For his chest pain serial EKGs within normal limits, troponins within normal limits, echocardiogram no significant wall motion abnormalities, no significant change in ejection fraction, stress test was low probability. Patient will be discharged on aspirin, statin, with close follow-up with cardiology as outpatient, if any recurrent chest pain to go to emergency room For hypertensive urgency, received blood pressure medications as inpatient, will be discharged on lisinopril, amlodipine, metoprolol Patient's echocardiogram did find mitral valve prolapse, this could possibly be an explanation for his chest discomfort, and or his anxiety, follow-up with cardiology as outpatient For his anxiety, seen by psychiatry as inpatient For patient's COVID-19, asymptomatic, continue facemask, hand wash, telemetry for fevers, Physical Exam Const: COMMON NORMALS: no acute distress and patient oriented x3 Resp: COMMON NORMALS: normal respiratory effort, No retractions, No use of accessory muscles and clear to auscultation bilaterally AUSCULTATION: clear to auscultation bilaterally Cardio: COMMON NORMALS: regular rate, regular rhythm, S1 normal heart sound present and S2 normal heart sound present RATE: regular rate RHYTHM: regular rhythm HEART SOUNDS: S1 normal heart sound present and S2 normal heart sound present GI: COMMON NORMALS: Normal to inspection, nondistended, normoactive bowel sounds present and non-tender Extremity: COMMON NORMALS: no pedal edema Neuro: COMMON NORMALS: patient oriented x3 Psych: COMMON NORMALS: mental status grossly normal Discharge Data Studies Completed and Pending Completed Studies During Hospitalization Category Date Time Status CT head wo con* [id number] Stat Cat Scan 08/09/23 21:24 Completed Sestamibi Stress Test Request Routine Exams 08/09/23 21:24 Draft XR chest 1V portable [id number] Stat Exams 08/09/23 17:26 Completed NM bere perf SPECT r/s* [id number] Routine Nuc Med 08/10/23 21:24 Completed CV. echo complete* [id number] Routine Ultrasound 08/09/23 21:24 Completed Pending at discharge Category Date Time Status Streptococcus Culture Group A Routine Lab 08/10/23 04:40 Received Radiology Impressions Chest X-Ray 08/09/23 17:26 IMPRESSION: Negative chest exam. Head CT 08/09/23 21:24 IMPRESSION: No acute intracranial findings. Laboratory Results WBC 8.77 10^3/uL (3.29-11.43) 08/10/23 03:35 RBC 5.30 10^6/uL (3.85-5.65) 08/10/23 03:35 Hgb 15.50 g/dL (11.27-16.99) 08/10/23 03:35 Hct 47.6 % (37-53) 08/10/23 03:35 MCV 89.8 fl (82-101) 08/10/23 03:35 MCH 29.2 pg (27-33) 08/10/23 03:35 MCHC 32.6 g/dL (30-55) 08/10/23 03:35 RDW 12.9 % (12.1-15.1) 08/10/23 03:35 Plt Count 256 10^3/cmm (157-399) 08/10/23 03:35 MPV 11.5 fL (7.4-10.4) H 08/10/23 03:35 Neut % (Auto) 48.1 % 08/10/23 03:35 Lymph % (Auto) 39.9 % 08/10/23 03:35 Grant % (Auto) 10.3 % 08/10/23 03:35 Eos % (Auto) 1.0 % 08/10/23 03:35 Baso % (Auto) 0.5 % 08/10/23 03:35 Neut # (Auto) 4.22 10^3/uL (1.8-7.7) 08/10/23 03:35 Lymph # (Auto) 3.5 10^3/uL (0.8-4.8) 08/10/23 03:35 Grant # (Auto) 0.9 10^3/uL (0.2-0.9) 08/10/23 03:35 Eos # (Auto) 0.1 10^3/uL (0.0-0.8) 08/10/23 03:35 Baso # (Auto) 0.0 10^3/uL (0.0-0.1) 08/10/23 03:35 Nucleated RBC % (auto) 0 % 08/10/23 03:35 Nucleated RBCs # 0.0 /100WBC 08/10/23 03:35 Sodium 137 mmol/L (136-145) 08/10/23 03:35 Potassium 3.6 mmol/L (3.5-5.1) 08/10/23 03:35 Chloride 102 mmol/L (98-107) 08/10/23 03:35 Carbon Dioxide 24 mmol/L (22-29) 08/10/23 03:35 Anion Gap 14.6 (5-19) 08/10/23 03:35 BUN 11 mg/dL (8-23) 08/10/23 03:35 Creatinine 0.8 mg/dL (0.7-1.2) 08/10/23 03:35 GFR Calculation 98.3 mL/min (90-130) 08/10/23 03:35 Glucose 103 mg/dL (65-115) 08/10/23 03:35 POC Glucose 120 mg/dL (70-110) H 08/10/23 11:09 Estimat Average Glucose 114 08/10/23 03:35 Hemoglobin A1c 5.6 % (4.0-6.0) 08/10/23 03:35 Calculated Osmolality 284 mOsm/kg (285-295) L 08/10/23 03:35 Calcium 8.9 mg/dL (8.5-10.5) 08/10/23 03:35 Phosphorus 2.3 mg/dL (2.5-4.5) L 08/10/23 03:35 Magnesium 2.1 mg/dL (1.7-2.3) 08/10/23 03:35 Iron 80 ug/dL (59-158) 08/09/23 23:03 TIBC 249 mcg/dl 08/09/23 23:03 % Saturation 32.1 % (20-50) 08/09/23 23:03 Unsat Iron Binding 169 ug/dL (112-347) 08/09/23 23:03 Total Bilirubin 0.6 mg/dL (0.15-1.2) 08/10/23 03:35 AST 16 U/L (0-40) 08/10/23 03:35 ALT 16 U/L (0-41) 08/10/23 03:35 Alkaline Phosphatase 57 U/L (40-130) 08/10/23 03:35 Troponin T Baseline 12 ng/L (0-15) 08/09/23 17:29 Troponin T 120 Minute 15.17 ng/L (0-15) H 08/09/23 19:20 Delta Troponin T 3.17 ABS# (0-10) 08/09/23 19:20 Troponin T Hi Sens 6Hr 10.19 ng/L (0-15) 08/09/23 23:03 Troponin T Hi Sens 6Hr Delta -1.81 ng/L (0-12) L 08/09/23 23:03 NT-Pro-B Natriuret Pep 41 pg/mL (0-125) 08/09/23 19:20 Total Protein 6.8 g/dL (6.6-8.7) 08/10/23 03:35 Albumin 4.3 g/dL (3.5-5.2) 08/10/23 03:35 Globulin 2.5 g/dL (1.3-4.6) 08/10/23 03:35 Triglycerides 142 mg/dL (0-150) 08/10/23 03:35 Cholesterol 159 mg/dL (0-200) 08/10/23 03:35 LDL Cholesterol, Calc 107 mg/dL (50-129) 08/10/23 03:35 HDL Cholesterol 24 mg/dL (60-100) L 08/10/23 03:35 LDL/HDL Ratio 4.46 RATIO (0.00-3.22) H 08/10/23 03:35 Cholesterol/HDL Ratio 6.63 mg/dL (1.0-5.00) H 08/10/23 03:35 Vitamin B12 390 pg/mL (232-1245) 08/09/23 23:03 Folate 6.0 ng/mL (4.5-32.2) 08/10/23 03:35 TSH 0.85 uIU/mL (0.27-4.20) 08/09/23 23:03 Urine Color Yellow (Yellow) 08/09/23 18:48 Urine Appearance Clear (CLEAR) 08/09/23 18:48 Urine pH 5 (5-7) 08/09/23 18:48 Ur Specific [place] 1.020 (1.005-1.030) 08/09/23 18:48 Urine Protein Neg (Negative) 08/09/23 18:48 Urine Glucose (UA) Norm (Normal) 08/09/23 18:48 Urine Ketones 1+ (Negative) H 08/09/23 18:48 Urine Blood Neg (Negative) 08/09/23 18:48 Urine Nitrate Negative (Negative) 08/09/23 18:48 Urine Bilirubin Neg (Negative) 08/09/23 18:48 Urine Urobilinogen Norm mg/dL (Negative) 08/09/23 18:48 Ur Leukocyte Esterase Negative (Negative) 08/09/23 18:48 Nasal Influ A H1 2009 PCR Not detected (NOT DETECT) 08/10/23 04:15 Urine Opiates Screen Negative ng/mL (Negative) 08/09/23 18:48 Ur Barbiturates Screen Negative ng/mL (Negative) 08/09/23 18:48 Ur Phencyclidine Scrn Negative ng/mL (Negative) 08/09/23 18:48 Ur Amphetamines Screen Negative ng/mL (Negative) 08/09/23 18:48 U Benzodiazepines Scrn Negative ng/mL (Negative) 08/09/23 18:48 Urine Cocaine Screen Negative ng/mL (Negative) 08/09/23 18:48 U Marijuana (THC) Screen Positive ng/mL (Negative) H 08/09/23 18:48 Adenovirus (PCR) Not detected (NOT DETECT) 08/10/23 04:15 C. pneumoniae DNA (PCR) Not detected (NOT DETECT) 08/10/23 04:15 Coronavirus 229E (PCR) Not detected (NOT DETECT) 08/10/23 04:15 Human Metapneumovir PCR Not detected (NOT DETECT) 08/10/23 04:15 Influenza A (H1) PCR Not detected (NOT DETECT) 08/10/23 04:15 Influenza A (H3) PCR Not detected (NOT DETECT) 08/10/23 04:15 Influenza Type A (PCR) Not detected (NOT DETECT) 08/10/23 04:15 Influenza Type B (PCR) Not detected (NOT DETECT) 08/10/23 04:15 M. pneumoniae (PCR) Not detected (NOT DETECT) 08/10/23 04:15 Parainfluenza 1 (PCR) Not detected (NOT DETECT) 08/10/23 04:15 Parainfluenza 2 (PCR) Not detected (NOT DETECT) 08/10/23 04:15 Parainfluenza 3 (PCR) Not detected (NOT DETECT) 08/10/23 04:15 Parainfluenza 4 (PCR) Not detected (NOT DETECT) 08/10/23 04:15 RSV Type A (PCR) Not detected (NOT DETECT) 08/10/23 04:15 RSV Type B (PCR) Not detected (NOT DETECT) 08/10/23 04:15 Entero/Rhino (PCR) Not detected (NOT DETECT) 08/10/23 04:15 SARS-CoV-2 (PCR) Detected (NOT DETECT) A 08/10/23 04:15 Group A Strep Rapid Negative (Negative) 08/10/23 04:40 Vitals Last Vital Signs Temp 98.5 F 08/10/23 11:06 Pulse 60 08/10/23 11:06 Resp 21 H 08/10/23 11:06 BP 118/69 08/10/23 11:06 Pulse Ox 94 08/10/23 11:06 O2 Del Method Room Air 08/10/23 11:06 Discharge Plan Discharge Patient Disposition: Home Condition: Stable Prescriptions: New atorvastatin 40 mg Tablet 40 mg PO BEDTIME 30 Days Qty: 30 0RF amlodipine 10 mg Tablet 10 mg PO DAILY 30 Days Qty: 30 0RF lisinopril 10 mg Tablet 10 mg PO BID 30 Days Qty: 60 0RF nitroglycerin 0.4 mg Tablet, Sublingual 0.4 mg sublingual Q5M PRN (Reason: Chest Pain) 30 Days Qty: 30 0RF metoprolol tartrate 25 mg Tablet 25 mg PO BID@0900,2100 30 Days Qty: 60 0RF Continued aspirin 81 mg Tablet,Delayed Release (Dr/Ec) 81 mg PO DAILY quetiapine 50 mg Tablet Extended Release 24 Hr 100 mg PO 1800 30 Days Qty: 60 1RF sertraline 50 mg Tablet 50 mg PO DAILY 30 Days Qty: 30 1RF Discharge Orders: Discharge Order (Routine); Ordered 08/10/23 Ordered By: Pedro Hamilton Referrals: Kenisha Olguin MD [Physician] - 2 weeks (We have notified your physician's clinic of the need for a follow-up appointment to be scheduled. If you have not heard from them within the next 2 business days, please call them directly. You may also reach out to our manager occupational at [phone] and she can assist you.) Discharge Diet: Cardiac Discharge Activity: Resume usual activity Patient Instructions: Nitrofurantoin (By mouth), Metoprolol (By mouth), Lisinopril (By mouth), Amlodipine (By mouth), Atorvastatin (By mouth), Mitral Valve Prolapse (DC), Chest Pain (DC), Opioid Safety Activity Restrictions/Additional Instructions: - If you have recurrent chest pain please go to the emergency room ? Follow-up with [facility] as outpatient ? Follow-up with your primary care provider as outpatient ? For your mitral valve prolapse please follow-up with cardiology Discharge Attestations Time Spent in Discharge Care*: greater than 30 min Quality Metrics Clinical Quality Measures [ No reported AMI, CVA or VTE this stay] Coding Level of Care Code Acute Code for Chg Fwd Diagnoses Chest pain R07.9 Hypertensive urgency I16.0 Major depressive disorder, recurrent severe without psychotic features F33.2 BELINDA (generalized anxiety disorder) F41.1 Streptococcus group A exposure Z20.818
--- NOTE | 2023-08-10 21:24 | NMCV_ITS ---
NM bere perf SPECT r/s* [id number] Thad Macedo Age: 63 Gender: M : 1960 Exam Date: 08/10/2023 06:40 Ordering Phys: Farzad Watkins MD Technologist: IVÁN Mancera Exam Location: [facility] Indications: CHEST PAIN STRESS TEST Please see separate stress test report in [facility] for full findings IMAGE PROTOCOL Rest/Stress 1 Lexiscan Day Radiopharmaceutical Dose (mCi) Administration Site Administered by Rest: Tc-99m 10.6 IV IVÁN Sierra Sestamibi Stress:Tc-99m 33.0 IV IVÁN Sierra Sestamibi Rest: 10-Aug-2023 60 Discovery 630 Stress: 10-Aug-2023 30 Discovery 630 0.4mg Lexiscan. Images obtained in supine and prone position. SPECT RESULTS Technical Quality: Excellent Raw Data Analysis: Normal Image Corrections: No attenuation or motion correction applied Summed Stress Score: 1 Summed Rest Score: 6 Summed Difference Score: 0 PERFUSION FINDINGS There is medium sized area of reduced radiotracer uptake in the inferior wall on rest imaging that resolves on stress imaging. Findings consistent with attenuation artifact. No evidence of ischemia or prior infarcts. FUNCTIONAL RESULTS (calculated via Gated SPECT) Stress Image LV EF (%): 79 Stress EDV (mL):80 TID: 1.02 Stress ESV (mL):17 FUNCTIONAL FINDINGS: There is normal left ventricular systolic function. IMPRESSIONS 1. Normal myocardial perfusion imaging with no evidence of ischemia. Attenuation artifact noted in the inferior wall 2. LV systolic function is normal Harry Paulino MD (Electronically Signed) Final Date: 10 August 2023 09:15 S
== END 2023-08-10 14:40 | disposition home or self-care (01) ==
LOC: ER 17:31 → CSU 21:17
PROVIDERS: Student in an Organized Health Care Education/Training Program; Admitting Provider Student in an Organized Health Care Education/Training Program; Emergency Provider Internal Medicine; Visit Provider Family Medicine
DX: R07.89 Other chest pain (principal); I16.0 Hypertensive urgency; F33.2 Major depressive disorder, recurrent severe without psychotic features; F41.1 Generalized anxiety disorder; Z20.818 Contact with and (suspected) exposure to other bacterial communicable diseases; Z79.82 Long term (current) use of aspirin; Z13.1 Encounter for screening for diabetes mellitus; Z13.220 Encounter for screening for lipoid disorders; I34.0 Nonrheumatic mitral (valve) insufficiency; I45.10 Unspecified right bundle-branch block
CPT/HCPCS: 36415; 36416; 70450; 71045; 78452; 80053; 80061; 80306; 81003; 82607; 82746; 82962; 83036; 83540; 83550; 83735; 83880; 84100; 84443; 84484; 85025; 87081; 87486; 87581; 87633; 87880; 93005; 93017; 93306; 94664; 96372; 96374; 96375; 99285; A9500; C9113; G0378; J1644; J2270; J2785

== ENCOUNTER 2023-08-11 17:31 | Emergency (ER) | payer MEDICAID, SELFPAY ==
[2023-08-11 17:51] VITALS: BP 112/80; PULSE 78; RESP 16; TEMP 37.2; O2SAT 99; BMI 28.2
[2023-08-11 18:27] LABS: Basophils % 0.4 %; Eosinophils % 0.3 %; Hematocrit 47.7 % (37-53); Lymphocytes # 2.7 10^3/uL (0.8-4.8); Lymphocytes % 24.9 %; Mean Corpuscular HGB Conc 33.3 g/dL (30-55); Mean Corpuscular Hemoglobin 29.1 pg (27-33); Mean Corpuscular Volume 87.4 fl (82-101); Mean Platelet Volume 11.5 fL (7.4-10.4); Monocytes # 0.8 10^3/uL (0.2-0.9); Monocytes % 7.4 %; Neutrophils # 7.13 10^3/uL (1.8-7.7); Neutrophils % 66.8 %; Nucleated Red Blood Cells % 0 %; Platelet Count 318 10^3/cmm (157-399); Red Blood Count 5.46 10^6/uL (3.85-5.65); Red Cell Distribution Width 12.6 % (12.1-15.1); White Blood Count 10.66 10^3/uL (3.29-11.43)
[2023-08-11 18:48] LABS: Alanine Aminotransferase 16 U/L (0-41); Albumin Level 4.6 g/dL (3.5-5.2); Alkaline Phosphatase 61 U/L (40-130); Anion Gap 15.4 (5-19); Aspartate Amino Transferase 16 U/L (0-40); Blood Urea Nitrogen 18 mg/dL (8-23); Calcium 9.1 mg/dL (8.5-10.5); Carbon Dioxide 24 mmol/L (22-29); Chloride 102 mmol/L (98-107); Globulin 2.6 g/dL (1.3-4.6); Glomerular Filtration Rate 85.8 mL/min (90-130); Glucose 116 mg/dL (65-115); Osmolality Calculated 289 mOsm/kg (285-295); Potassium 3.4 mmol/L (3.5-5.1); Sodium 138 mmol/L (136-145); Total Bilirubin 0.7 mg/dL (0.15-1.2); Total Protein 7.2 g/dL (6.6-8.7)
[2023-08-11 21:17] VITALS: BP 160/86; PULSE 82; O2SAT 97
[2023-08-11 21:18] VITALS: BP 160/86; PULSE 82; O2SAT 97
--- NOTE | 2023-08-12 05:56 | W.ED.GENADLT ---
HPI - General Adult General: Chief complaint: General Medical Stated complaint: rectal bleeding with pain Time Seen by Provider: 08/11/23 19:23 Source: patient History of Present Illness: 63-year-old male gentleman recently admitted for chest discomfort. He had a stress test that was negative at that point. He comes in with continued problems with chest discomfort on and off. The latest episode seem to wake him from sleep. He notes that there was also a generalized abdominal pain radiating to his anus. He had a gelatinous red bowel movement following this which concerned him. Associated symptoms: Reports chest pain, dyspnea, nausea and palpitations; Deny confusion, headache(s), rash or vomiting Review of Systems Const: Denies: fever(s), chills or body aches Eyes: Denies: change in vision Card: Reports: chest pain and palpitations Resp: Reports: dyspnea; Denies: productive cough, non-productive cough or wheezing GI: Reports: abdominal pain, nausea and hematochezia (possibly); Denies: vomiting, diarrhea or melena Skin/Breast: Denies: rash Neuro: Denies: headache(s), weakness in extremities, dizziness or confusion [facility] ED PFSH: Medical History (Updated 08/11/23 @ 20:24 by Marcelo Davis DO) Anxiety Depression Hypertension Psychiatric care Family History Brother Alcohol abuse Physical Exam Const: COMMON NORMALS: no acute distress GENERAL APPEARANCE: cooperative and anxious; not ill appearing and not frail appearing HENMT: COMMON NORMALS: normocephalic, atraumatic and Normal external nose present HEAD & SCALP: normocephalic and atraumatic FACE & SINUS: normal facial exam and face symmetric NOSE: Normal external nose present Eye: COMMON NORMALS: Equal, round and reactive pupils present and EOMs intact bilaterally PUPIL: Yes Equal, round and reactive pupils present Neck/C-Spine: GENERAL: Yes trachea midline Chest: CHEST: Yes Symmetrical chest wall rise Resp: COMMON NORMALS: normal respiratory effort, No retractions, No use of accessory muscles and clear to auscultation bilaterally AUSCULTATION: clear to auscultation bilaterally Cardio: COMMON NORMALS: regular rate and regular rhythm RATE: regular rate RHYTHM: regular rhythm GI: COMMON NORMALS: Normal to inspection, nondistended, normoactive bowel sounds present Extremity: COMMON NORMALS: no pedal edema Neuro: NATASHA COMA SCALE: document GCS findings Natasha coma scale eye opening: Spontaneous [place] coma scale verbal response: Orientated [place] coma scale motor response: Obey commands Natasha coma scale total score: 15 SENSORY EXAM: Yes extremities (intact) Psych: COMMON NORMALS: speech normal SPEECH: Yes normal speech Skin: COMMON NORMALS: no rashes or lesions noted GENERAL SKIN EXAM: no rashes or lesions noted Course Vital Signs: Vital signs: Vital Signs Temperature 98.9 F 08/11/23 17:51 Pulse Rate 82 08/11/23 21:18 Respiratory Rate 16 08/11/23 17:51 Blood Pressure 160/86 08/11/23 21:18 Pulse Oximetry 97 08/11/23 21:18 Oxygen Delivery Me thod Room Air 08/11/23 21:17 MDM - General Adult Medical Decision Making Patient with near syncope symptoms, chest and abdominal discomfort. He has had a negative stress, essentially normal echo, and further workup in the past 2 days. Symptoms are largely related to anxiety likely, but Differential diagnosis includes esophageal spasm, symptoms related to hypertension, or his current infection with COVID-19. Work up here is again benign. He is encouraged to stay on his newly prescribed antihypertensive until they reach steady state, and follow up. he'll be allowed home. Return for worsening symptoms despite treatment. Lab Data 08/11/23 18:11 08/11/23 18:11 Laboratory Results WBC 10.66 10^3/uL (3.29-11.43) 08/11/23 18:11 RBC 5.46 10^6/uL (3.85-5.65) 08/11/23 18:11 Hgb 15.90 g/dL (11.27-16.99) 08/11/23 18:11 Hct 47.7 % (37-53) 08/11/23 18:11 MCV 87.4 fl (82-101) 08/11/23 18:11 MCH 29.1 pg (27-33) 08/11/23 18:11 MCHC 33.3 g/dL (30-55) 08/11/23 18:11 RDW 12.6 % (12.1-15.1) 08/11/23 18:11 Plt Count 318 10^3/cmm (157-399) 08/11/23 18:11 MPV 11.5 fL (7.4-10.4) H 08/11/23 18:11 Neut % (Auto) 66.8 % 08/11/23 18:11 Lymph % (Auto) 24.9 % 08/11/23 18:11 [place] % (Auto) 7.4 % 08/11/23 18:11 Eos % (Auto) 0.3 % 08/11/23 18:11 Baso % (Auto) 0.4 % 08/11/23 18:11 Neut # (Auto) 7.13 10^3/uL (1.8-7.7) 08/11/23 18:11 Lymph # (Auto) 2.7 10^3/uL (0.8-4.8) 08/11/23 18:11 [place] # (Auto) 0.8 10^3/uL (0.2-0.9) 08/11/23 18:11 Eos # (Auto) 0.0 10^3/uL (0.0-0.8) 08/11/23 18:11 Baso # (Auto) 0.0 10^3/uL (0.0-0.1) 08/11/23 18:11 Nucleated RBC % (auto) 0 % 08/11/23 18:11 Nucleated RBCs # 0.0 /100WBC 08/11/23 18:11 Sodium 138 mmol/L (136-145) 08/11/23 18:11 Potassium 3.4 mmol/L (3.5-5.1) L 08/11/23 18:11 Chloride 102 mmol/L (98-107) 08/11/23 18:11 Carbon Dioxide 24 mmol/L (22-29) 08/11/23 18:11 Anion Gap 15.4 (5-19) 08/11/23 18:11 BUN 18 mg/dL (8-23) 08/11/23 18:11 Creatinine 0.9 mg/dL (0.7-1.2) 08/11/23 18:11 GFR Calculation 85.8 mL/min (90-130) L 08/11/23 18:11 Glucose 116 mg/dL (65-115) H 08/11/23 18:11 Calculated Osmolality 289 mOsm/kg (285-295) 08/11/23 18:11 Calcium 9.1 mg/dL (8.5-10.5) 08/11/23 18:11 Total Bilirubin 0.7 mg/dL (0.15-1.2) 08/11/23 18:11 AST 16 U/L (0-40) 08/11/23 18:11 ALT 16 U/L (0-41) 08/11/23 18:11 Alkaline Phosphatase 61 U/L (40-130) 08/11/23 18:11 Total Protein 7.2 g/dL (6.6-8.7) 08/11/23 18:11 Albumin 4.6 g/dL (3.5-5.2) 08/11/23 18:11 Globulin 2.6 g/dL (1.3-4.6) 08/11/23 18:11 No radiology studies performed this visit Discharge Plan Discharge Patient Disposition: Home Clinical Impression: BELINDA (generalized anxiety disorder), Hypertension, COVID-19 Condition: Stable Prescriptions: No Action aspirin 81 mg Tablet,Delayed Release (Dr/Ec) 81 mg PO DAILY quetiapine 50 mg Tablet Extended Release 24 Hr 100 mg PO 1800 30 Days Qty: 60 1RF sertraline 50 mg Tablet 50 mg PO DAILY 30 Days Qty: 30 1RF atorvastatin 40 mg Tablet 40 mg PO BEDTIME 30 Days Qty: 30 0RF amlodipine 10 mg Tablet 10 mg PO DAILY 30 Days Qty: 30 0RF lisinopril 10 mg Tablet 10 mg PO BID 30 Days Qty: 60 0RF nitroglycerin 0.4 mg Tablet, Sublingual 0.4 mg sublingual Q5M PRN (Reason: Chest Pain) 30 Days Qty: 30 0RF metoprolol tartrate 25 mg Tablet 25 mg PO BID@0900,2100 30 Days Qty: 60 0RF Discharge Orders: Discharge ED (Routine); Ordered 08/11/23 Ordered By: Marcelo Davis Patient Instructions: Hypertension (ED), Anxiety (ED), COVID-19 (Coronavirus Disease 2019) (ED), Opioid Safety, Pain Management Activity Restrictions/Additional Instructions: See your doctor next week. Return for worsening shortness of breath, vomiting, worsening diarrhea, other concerning symptoms. Coding Level of Care Code ED General Worker for Marge Brown
== END 2023-08-11 21:21 | disposition home or self-care (01) ==
PROVIDERS: Family Medicine; Emergency Provider Emergency Medicine; PCP Family Medicine
DX: F41.1 Generalized anxiety disorder (principal); I10 Essential (primary) hypertension; U07.1 COVID-19; Z79.82 Long term (current) use of aspirin
CPT/HCPCS: 36415; 80053; 85025; 99283